=== PATIENT | female | born 1995 | race Two or more races ===

== ENCOUNTER → 2023-06-16 | Outpatient (CLI) | payer BC, SELFPAY ==
[2023-06-21 13:07] LABS: Age Gdln ACOG Testing 21-29 (.)
[2023-06-21 20:48] LABS: HPV Reflexed? NOT INDICATED
== END | disposition home or self-care (01) ==
PROVIDERS: PCP Family Medicine; Referring Provider Family Medicine; Visit Provider Family Medicine
DX: Z12.4 Encounter for screening for malignant neoplasm of cervix (principal)
CPT/HCPCS: 88175; G0145